=== PATIENT | male | born 1970 | race Caucasian/White ===

== ENCOUNTER 2024-10-06 12:46 | Emergency (ER) | payer OTHER, SELFPAY ==
[2024-10-06 13:02] VITALS: BP 132/82
--- NOTE | 2024-10-06 13:25 | ED.GENMED ---
History of Present Illness
General
Chief Complaint: Musculo-Skeletal Complaint
Source: patient
Time Seen by Provider: 10/06/24 13:17
History of Present Illness
History of Present Illness:
54yoM with a history of prediabetes, hypertension, and obesity presenting for evaluation of a right leg wound. 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 He sustained some abrasions
during the incident. He is having ongoing pain in the leg. The leg also feels hot. He was seen by occupational medicine today and apparently he was too large for their x-ray machine so he was advised to go to the ED for evaluation. He denies any
fevers or chills. Unknown last Tdap.
Phy Exam
General Physical Exam
General Presentation: well appearing and no apparent distress
General age: appears stated age
General Skin: warm and dry
General Habitus: normal
General Mental: alert
ENT Exam
ENT Exam: normocephalic
Pulmonary Exam
Pulmonary Exam: no respiratory distress
Neurological Exam
Neurological Exam: alert
Ray Coma Scale
Eye Opening: Spontaneous
Verbal Response: Oriented
Motor Response: Obeys Commands
GCS Total Score: 15
Musculoskeletal Exam
Musculoskeletal Exam: other (Large abrasion noted to the R medial calf/thigh with scattered abrasions in calf. There is erythema and warmth noted to the anterior lower calf as well as the medial thigh. No pain out of proportion or crepitus.
Compartments soft.)
Skin Exam
Skin Exam: warm/dry
Psychiatric Exam
Psychiatric Exam: normal mood/affect
Course
Orders/Labs/Results
Orders:
Orders
10/06/24 13:24
Tetanus/Diphth/Acelpertussis [Adacel] 0.5 ml IM .ONCE ONE
CR Femur - Right Min 2 Vw Urgent
Comment:
Reason For Exam: wound
CR Knee - Right 1 Or 2 Views Urgent
Reason For Exam: wound
CR Leg Tibia/fibula Right 2 Vw Urgent
Comment:
Reason For Exam: wound
10/06/24 13:41
Complete Blood Count/With Diff Urgent
Lactate Level [Lactic Acid] Urgent
10/06/24 14:21
Comprehensive Metabolic Panel Urgent
10/06/24 14:25
CeFAZolin 2 GRAM [Ancef] 2 grams in 10 ml IV NOW
10/06/24 15:20
Walker [Treatment- Walker] ONCE
Abnormal Lab Results
10/06/24 10/06/24
13:41 14:21
Abs Immat Gran (auto) 0.1 H 10^3/uL
(0-0.05)
Immature Gran % 0.8 H %
(0-0.5)
Glucose 137 H mg/dl
(70-99)
10/06/24 13:41
10/06/24 14:21
Vital Signs
Initial and Last Documented VS:
Initial Vital Signs
Temp Pulse Resp BP Pulse Ox
98.2 F 93 16 132/82 98
10/06/24 13:02 10/06/24 13:02 10/06/24 13:02 10/06/24 13:02 10/06/24 13:02
Last Documented Vital Signs
Temp Pulse Resp BP Pulse Ox
98.2 F 82 16 139/80 96
10/06/24 13:02 10/06/24 16:00 10/06/24 16:00 10/06/24 16:00 10/06/24 16:00
MDM/Problems Addressed
Differential Diagnosis Includes:
54yoM here with R leg pain and warmth after a work injury 2 days ago. Got his leg caught between a machine and a curb. No f/c. He is afebrile and hemodynamically stable. He is well appearing in no distress. There are abrasions noted to R leg with a
large abrasion in the medial calf/thigh. +Erythema and warmth in calf and thigh. No crepitus or pain out of proportion. Differential diagnosis includes but is not limited to: abrasion, crush injury, cellulitis, no clinical evidence of NSTI or
compartment syndrome
Initial ED plan: Check CBC, CMP, lactate, and x-rays of R femur/knee/tib-fib. Update Tdap.
*Critical Care Note
Total Time (30-74mins, 75-104mins- exclusive of procedures): Not Applicable
Update Note
Update Note:
White count and lactate WNL. X-rays appear normal other than an old healed fracture in the distal fibula. Patient reports difficulty ambulating due to the pain. Offered admission for IV antibiotics and monitoring which patient declines. He is
requesting a walker to help with ambulation which was provided. Dose of IV Ancef given in ED. He was started on a course of Keflex and Bactrim. He has an appt scheduled with occupational medicine scheduled in 2 days. Strict ED return precautions
discussed. He expressed understanding and was discharged in stable condition.
ED Attending Note
-
Portions of this chart may have been created with voice recognition software.� Occasional wrong word or��sound alike� substitutions may have occurred due to the inherent limitations of voice recognition software.
Discharge Plan
Departure
Patient Disposition: Home (Routine Discharge)
Date of Disposition: 10/06/24
Time of Disposition: 15:30
Patient with high blood pressure during this ER visit?: No
Discharge Problem:
Abrasion of leg, right, infected
Instructions: Cellulitis (skin infection) in adults - Discharge instructions
Prescriptions:
New
cephalexin 500 mg capsule
500 mg PO Q6H 7 Days Qty: 28 0RF
sulfamethoxazole-trimethoprim [Bactrim DS] 800-160 mg tablet
1 tab PO BID Qty: 14 0RF
Referrals:
Jose Dunn PA [Family Provider] -
Jame Marina MD [Active] -
Activity Restrictions/Additional Instructions:
Take antibiotics as prescribed.
Please follow-up with the occupational medicine provider in 2 days as previously scheduled. I have also provided contact information for orthopedics.
Return to the ER immediately with any worsening symptoms, fevers, chills, or severe pain.
Interventions
Interventions:
*Risk Screen - Suicide Last Done: 10/06/24 13:56
*General Assessment Last Done: 10/06/24 13:56
*Neglect/Abuse Screening Last Done: 10/06/24 13:56
ED- Fall Risk Assessment Last Done: 10/06/24 13:56
*Nursing Disposition Last Done: 10/06/24 16:37
ED-Musculoskeletal Assessment Last Done: 10/06/24 13:56
Discharge Date and Time
Discharge Date/Time: 10/06/24 16:37
Print Language: ARABIC
[2024-10-06] MEDS: ADACEL 0.5 ML IM (13:42)
[2024-10-06 13:53] LABS: % Basophils 0.7 % (0-2); % Eosinophils 2.5 % (0-6); % Immature Granulocytes 0.8 % (0-0.5); % Lymphocytes 29.6 % (20.5-51.1); % Monocytes 5.8 % (1.7-9.3); % Neutrophils 60.6 % (42.2-75.2); Absolute Basophils 0.1 10^3/uL (0-0.2); Absolute Eosinophils 0.2 10^3/uL (0-0.7); Absolute Immature Granulocytes 0.1 10^3/uL (0-0.05); Absolute Lymphocytes 2.2 10^3/uL (1.2-3.4); Absolute Monocytes 0.4 10^3/uL (0.1-0.6); Absolute Neutrophils 4.5 10^3/uL (1.4-6.5); Hematocrit 41.7 % (39.0-52.0); Hemoglobin 13.8 g/dL (13.0-18.0); Mean Corp Hgb Conc. 33.1 g/dL (33.0-37.0); Mean Corpuscular Hgb 28.1 pg (27.0-31.0); Mean Corpuscular Volume 84.9 fL (80.0-94.0); Mean Platelet Volume 9.7 fL (7.4-10.4); Nucleated Red Blood Cells % 0 % (-); Platelet Count 323 10^3/uL (130-400); Red Blood Cell Count 4.91 10^6/uL (4.70-6.10); Red Cell Dist. Width 12.9 % (11.5-14.5); White Blood Cell Count 7.5 10^3/uL (4.8-10.8)
[2024-10-06 14:04] LABS: Lactic Acid 1.8 mmol/L (0.7-2.0)
[2024-10-06 14:57] LABS: ALT (SGPT) 24 U/L (0-50); AST (SGOT) 28 U/L (17-59); Albumin 3.8 g/dl (3.5-5.0); Alkaline Phosphatase 56 U/L (38-126); Blood Urea Nitrogen 20 mg/dl (9-20); Carbon Dioxide 27 mmol/L (22-30); Chloride 106 mmol/L (98-107); Glucose 137 mg/dl (70-99); Potassium 4.3 mmol/L (3.5-5.1); Sodium 140 mmol/L (135-145); Total Bilirubin 0.7 mg/dl (0.2-1.3); Total Protein 6.4 g/dl (6.3-8.2); eGFR > 60.00
[2024-10-06] MEDS: ANCEF 10 IV (15:06)
[2024-10-06 16:00] VITALS: BP 139/80
== END 2024-10-06 16:37 | disposition home or self-care (01) ==
LOC: EMR 12:46
PROVIDERS: Physician Assistant; EMERGENCY PHYSICIAN Student in an Organized Health Care Education/Training Program; FAMILY PHYSICIAN Physician Assistant
DX: S80.811A Abrasion, right lower leg, initial encounter (principal); X58.XXXA Exposure to other specified factors, initial encounter; Z23 Encounter for immunization; R73.03 Prediabetes; I10 Essential (primary) hypertension; E66.9 Obesity, unspecified
CPT/HCPCS: 99283; 96374; 90471; 73552; 73560; 73590; 80053; 83605; 85025; 90715